=== PATIENT | female | born 1960 | race Caucasian/White ===

== ENCOUNTER → 2018-05-16 11:41 | Outpatient (CLI) | payer OTHER ==
[2018-05-16 12:30] LABS: MAGNESIUM - SERUM 1.9 mg/dL (1.8-2.4); THYROID STIMULATING HORMONE 0.94 uIU/mL (0.36-3.74)
== END | disposition home or self-care (01) ==
LOC: D.LAB 11:41
PROVIDERS: Family Medicine
DX: I49.9 Cardiac arrhythmia, unspecified (principal); E27.40 Unspecified adrenocortical insufficiency; E61.2 Magnesium deficiency

== ENCOUNTER 2019-04-30 08:00 | Outpatient (CLI) | payer OTHER | END 2019-04-30 23:59 | disposition home or self-care (01) | LOC: D.MAMMO 08:00 | PROVIDERS: ATTEND Family Medicine | DX: Z12.31 Encounter for screening mammogram for malignant neoplasm of breast (principal) ==